=== PATIENT | female | born 1955 | race Caucasian/White ===

== ENCOUNTER 2024-09-05 12:02 | Inpatient (IN) | payer OTHER, MEDICAID ==
[~2024-09-05] VITALS: Ht 175.3 cm; Wt 113.4 kg
[~2024-09-05 12:02] MED LIST: ACET-66 PO; ALBU18HF12 IH; ASPI-1450 PO; ATOR40TA28 PO; AZAT50TA22 PO; CALC200T31 CHEW; CHOL200059 PO; CYCL1DRO21 OU; FLUT16SP NASAL; GABA-1181 PO; GABA-1216 PO; LACT1CAP58 PO; LEVO25TA9 PO; LORA10TA7 PO; MAGN-169 PO; MAGN64TA7 PO; OLAN10TA74 PO; OLAN5TAB52 PO; OLAN5TAB94 PO; ONDA-104 PO; POLY17PO47 PO; POLY250020 PO; PRED-549 PO; RISP-31 PO; RISP0.5T80 PO; SENN-395 PO; SIME80TA82 PO; TACR1CAP12 PO; TRAZ-252 PO; TRAZ-257 PO
[2024-09-05] MEDS ORDERED: OLANZapine 5 MG RAPDIS TABLET PO SCH (21:00)
[2024-09-05] MEDS ORDERED: TraZODone HCL 100 MG TABLET PO SCH (21:00)
[2024-09-06] MEDS ORDERED: DEXTROSE 50%-WATER 25 GM/50 ML SYRINGE IVP PRN (13:30)
[2024-09-06] MEDS ORDERED: GABAPENTIN 300 MG CAPSULE PO SCH (17:00)
[2024-09-06] MEDS: CycloSPORINE 0.05% 0.4 ML OPHTHALMIC EMULSION OU SCH (17:00)
[2024-09-06] MEDS: TACROLIMUS 1 MG CAPSULE PO SCH (17:00)
[2024-09-06] MEDS: INSULIN LISPRO 100 UNITS/ML SQ PRN (18:37)
[2024-09-06 18:56] LABS: GLUCOMETER DEV NAME(LOC) 3E.I 2; GLUCOSE,POINT OF CARE 417 MG/DL (70-110)
[2024-09-06] MEDS: SENNOSIDES 8.6 MG TABLET PO SCH (21:00)
[2024-09-06] MEDS: ATORVASTATIN CALCIUM 40 MG TABLET PO SCH (21:00)
[2024-09-06] MEDS: INSULIN GLARGINE,HUM.REC.ANLOG 100 UNITS/ML SQ SCH (21:00)
[2024-09-06] MEDS: ETHYL ALCOHOL 62% ANTISEPTIC NASAL SANITIZER 0.6 ML AMPUL NASAL SCH (21:00)
[2024-09-06] MEDS: CHLORHEXIDINE GLUCONATE 2% TOWELETTE [2'S/6'S] TP SCH (22:00)
[2024-09-06 22:50] VITALS: RESP 18
[2024-09-06] MEDS: RisperiDONE 2 MG TABLET PO PRN (23:25)
[2024-09-07] MEDS: TraZODone HCL 100 MG TABLET PO SCH
[2024-09-07] MEDS: OLANZapine 5 MG RAPDIS TABLET PO SCH (00:54)
[2024-09-07] MEDS: LEVOTHYROXINE SODIUM 25 MCG TABLET PO SCH (07:00)
[2024-09-07] MEDS ORDERED: MULTIVITAMINS WITH MINERALS, THERAPEUTIC TABLET PO SCH (09:00)
[2024-09-07] MEDS: PredniSONE 5 MG TABLET PO SCH (09:20)
[2024-09-07] MEDS: MAGNESIUM OXIDE 400 MG TABLET PO SCH (09:20)
[2024-09-07] MEDS: ASPIRIN 81 MG CHEWABLE TABLET PO SCH (09:20)
[2024-09-07 12:30] LABS: GLUCOMETER DEV NAME(LOC) 3E.I 2; GLUCOSE,POINT OF CARE 387 MG/DL (70-110)
[2024-09-07 21:07] VITALS: RESP 20; TEMP 98.5; O2SAT 97
[2024-09-08 09:06] LABS: GLUCOMETER DEV NAME(LOC) 3E.I 2; GLUCOSE,POINT OF CARE 258 MG/DL (70-110)
[2024-09-08 11:50] LABS: GLUCOMETER DEV NAME(LOC) 3E.I 2; GLUCOSE,POINT OF CARE 360 MG/DL (70-110)
[2024-09-08 12:31] VITALS: RESP 18
[2024-09-08 17:10] LABS: GLUCOMETER DEV NAME(LOC) 3E.I 2; GLUCOSE,POINT OF CARE 313 MG/DL (70-110)
[2024-09-08 21:58] VITALS: RESP 18
[2024-09-09 08:58] LABS: CALCIUM, TOTAL 8.3 mg/dL (8.8-10.5); CREATININE 1.32 mg/dL (0.60-1.30); MAGNESIUM 1.9 mg/dL (1.80-2.40); PHOSPHORUS 3.4 mg/dL (2.5-4.9); POTASSIUM 3.7 mmol/L (3.5-5.1)
[2024-09-09 08:59] LABS: CHOL/HDL RATIO 2.5 (3.9-5.7)
[2024-09-09] MEDS: DOCUSATE SODIUM 100 MG CAPSULE PO PRN (09:24)
[2024-09-09 09:56] LABS: GLUCOMETER DEV NAME(LOC) 3E.I 2; GLUCOSE,POINT OF CARE 227 MG/DL (70-110)
[2024-09-09 10:02] VITALS: RESP 18
[2024-09-09 11:46] LABS: GLUCOMETER DEV NAME(LOC) 3E.I 2; GLUCOSE,POINT OF CARE 278 MG/DL (70-110)
[2024-09-09 17:45] LABS: GLUCOMETER DEV NAME(LOC) 3E.I 2; GLUCOSE,POINT OF CARE 359 MG/DL (70-110)
[2024-09-09 21:05] LABS: GLUCOMETER DEV NAME(LOC) 3EX.2; GLUCOSE,POINT OF CARE 222 MG/DL (70-110)
[2024-09-09 21:31] VITALS: RESP 18; TEMP 97.5
[2024-09-10] MEDS: OLANZapine 10 MG RAPDIS TABLET PO SCH
[2024-09-10 11:23] VITALS: RESP 18
[2024-09-10 11:51] LABS: GLUCOMETER DEV NAME(LOC) 3EX.2; GLUCOSE,POINT OF CARE 272 MG/DL (70-110)
[2024-09-10 17:05] LABS: GLUCOMETER DEV NAME(LOC) 3EX.2; GLUCOSE,POINT OF CARE 273 MG/DL (70-110)
[2024-09-10] MEDS: INSULIN GLARGINE,HUM.REC.ANLOG 100 UNITS/ML SQ SCH (18:03)
[2024-09-10 22:19] VITALS: RESP 18
[2024-09-11 09:38] VITALS: RESP 18
[2024-09-11 12:55] LABS: GLUCOMETER DEV NAME(LOC) 3E.I 2; GLUCOSE,POINT OF CARE 355 MG/DL (70-110)
[2024-09-11 18:50] LABS: GLUCOMETER DEV NAME(LOC) 3E.I 2; GLUCOSE,POINT OF CARE 245 MG/DL (70-110)
[2024-09-11 20:24] VITALS: RESP 18
[2024-09-11 21:01] LABS: GLUCOMETER DEV NAME(LOC) 3E.I 2; GLUCOSE,POINT OF CARE 228 MG/DL (70-110)
[2024-09-12 08:37] VITALS: RESP 18
[2024-09-12 11:36] LABS: GLUCOMETER DEV NAME(LOC) 3E.I 2; GLUCOSE,POINT OF CARE 278 MG/DL (70-110)
[2024-09-12 17:46] LABS: GLUCOMETER DEV NAME(LOC) 3E.I 2; GLUCOSE,POINT OF CARE 378 MG/DL (70-110)
[2024-09-12] MEDS: TACROLIMUS 0.5 MG CAPSULE PO SCH (17:50)
[2024-09-12 20:31] LABS: GLUCOMETER DEV NAME(LOC) 3E.I 2; GLUCOSE,POINT OF CARE 262 MG/DL (70-110)
[2024-09-12 20:44] VITALS: PULSE 68; RESP 16; TEMP 98; O2SAT 98
[2024-09-12] MEDS: ACETAMINOPHEN 325 MG TABLET PO PRN (20:44)
[2024-09-12 23:23] VITALS: RESP 18; TEMP 97.9
[2024-09-13 06:31] LABS: GLUCOMETER DEV NAME(LOC) 3E.I 2; GLUCOSE,POINT OF CARE 174 MG/DL (70-110)
[2024-09-13 12:11] LABS: GLUCOMETER DEV NAME(LOC) 3E.I 2; GLUCOSE,POINT OF CARE 314 MG/DL (70-110)
[2024-09-13 17:02] VITALS: PULSE 71; O2SAT 96
[2024-09-13 17:15] LABS: GLUCOMETER DEV NAME(LOC) 3E.I 2; GLUCOSE,POINT OF CARE 336 MG/DL (70-110)
[2024-09-13 20:21] LABS: GLUCOMETER DEV NAME(LOC) 3E.I 2; GLUCOSE,POINT OF CARE 327 MG/DL (70-110)
[2024-09-13 22:02] VITALS: TEMP 98.2; O2SAT 98
[2024-09-14 05:41] LABS: GLUCOMETER DEV NAME(LOC) 3E.I 2; GLUCOSE,POINT OF CARE 235 MG/DL (70-110)
[2024-09-14 09:00] VITALS: RESP 18
[2024-09-14 11:46] LABS: GLUCOMETER DEV NAME(LOC) 3E.I 2; GLUCOSE,POINT OF CARE 281 MG/DL (70-110)
[2024-09-14 18:36] LABS: GLUCOMETER DEV NAME(LOC) 3E.I 2; GLUCOSE,POINT OF CARE 316 MG/DL (70-110)
[2024-09-14 20:15] LABS: GLUCOMETER DEV NAME(LOC) 3E.I 2; GLUCOSE,POINT OF CARE 329 MG/DL (70-110)
[2024-09-14 20:21] VITALS: RESP 20
[2024-09-15 06:00] LABS: GLUCOMETER DEV NAME(LOC) 3E.I 2; GLUCOSE,POINT OF CARE 180 MG/DL (70-110)
[2024-09-15 12:15] LABS: GLUCOMETER DEV NAME(LOC) 3E.I 2; GLUCOSE,POINT OF CARE 237 MG/DL (70-110)
[2024-09-15 12:38] VITALS: BP 145/72; PULSE 75
[2024-09-15 17:56] LABS: GLUCOMETER DEV NAME(LOC) 3E.I 2; GLUCOSE,POINT OF CARE 302 MG/DL (70-110)
[2024-09-15 21:06] LABS: GLUCOMETER DEV NAME(LOC) 3E.I 2; GLUCOSE,POINT OF CARE 239 MG/DL (70-110)
[2024-09-16 06:06] LABS: GLUCOMETER DEV NAME(LOC) 3E.I 2; GLUCOSE,POINT OF CARE 118 MG/DL (70-110)
[2024-09-16 09:29] LABS: BASOPHILS % (AUTO) 0.3 % (0.0-2.0); HEMATOCRIT 31.9 % (36-46); HEMOGLOBIN 10.6 g/dL (12.0-16.0); LYMPHOCYTES # (AUTO) 2.7 K/uL (1.0-4.8); LYMPHOCYTES % (AUTO) 34.6 % (22.0-44.0); MEAN CORPUSCULAR HEMOGLOBIN 30.3 pg (26.0-34.0); MEAN CORPUSCULAR HGB CONC 33.4 G/dL (31.0-37.0); MEAN CORPUSCULAR VOLUME 91 fL (80-100); MONOCYTES # (AUTO) 0.7 K/uL (0.1-1.0); MONOCYTES % (AUTO) 9.5 % (2.0-9.0); NEUTROPHILS # (AUTO) 4.1 K/uL (1.8-7.7); NEUTROPHILS % (AUTO) 53.6 % (40.0-70.0); PLATELET COUNT (AUTO) 183 K/uL (150-450); RED BLOOD CELL COUNT(AUTO) 3.51 MIL/uL (4.00-5.20); RED CELL DISTRIBUTION WIDTH 15.1 % (11.5-14.5); WHITE BLOOD COUNT (AUTO) 7.7 K/uL (4.5-11.0)
[2024-09-16 09:48] LABS: CREATININE 1.51 mg/dL (0.60-1.30)
[2024-09-16 10:00] LABS: MAGNESIUM 1.9 mg/dL (1.80-2.40); PHOSPHORUS 3.7 mg/dL (2.5-4.9)
[2024-09-16 10:05] VITALS: RESP 18
[2024-09-16 11:36] LABS: GLUCOMETER DEV NAME(LOC) 3E.I 2; GLUCOSE,POINT OF CARE 229 MG/DL (70-110)
[2024-09-16 17:10] LABS: GLUCOMETER DEV NAME(LOC) 3E.I 2; GLUCOSE,POINT OF CARE 303 MG/DL (70-110)
[2024-09-16 20:16] LABS: GLUCOMETER DEV NAME(LOC) 3E.I 2; GLUCOSE,POINT OF CARE 303 MG/DL (70-110)
[2024-09-16 21:38] VITALS: RESP 18
[2024-09-17] MEDS: ALBUTEROL SULFATE HFA 90 MCG/PUFF 8 GM INHALER IH PRN (00:12)
[2024-09-17 05:51] LABS: GLUCOMETER DEV NAME(LOC) 3E.I 2; GLUCOSE,POINT OF CARE 209 MG/DL (70-110)
[2024-09-17 08:26] VITALS: RESP 18
[2024-09-17 08:56] LABS: GLUCOMETER DEV NAME(LOC) 3E.I 2; GLUCOSE,POINT OF CARE 122 MG/DL (70-110)
[2024-09-17 11:55] LABS: CALCIUM, TOTAL 7.9 mg/dL (8.8-10.5); CREATININE 1.56 mg/dL (0.60-1.30); POTASSIUM 3.8 mmol/L (3.5-5.1)
[2024-09-17 12:15] LABS: GLUCOMETER DEV NAME(LOC) 3E.I 2; GLUCOSE,POINT OF CARE 245 MG/DL (70-110)
[2024-09-17] MEDS: OLANZapine 2.5 MG TABLET PO SCH (13:31)
[2024-09-17 16:18] LABS: APPEARANCE,URINE TURBID (CLEAR); BILIRUBIN,URINE NEGATIVE (NEGATIVE); COLOR,URINE YELLOW (YELLOW); GLUCOSE, URINE (UA) 150-200 mg/dL (NEGATIVE); KETONES,URINE NEGATIVE (NEGATIVE); LEUKOCYTE ESTERASE ,URINE LARGE (NEGATIVE); NITRATE,URINE NEGATIVE (NEGATIVE); OCCULT BLOOD,URINE SMALL (NEGATIVE); PH,URINE 6.5 (5.0-8.0); PROTEIN,URINE 30-70 mg/dL (NEGATIVE); UROBILINOGEN,URINE <=1.0 mg/dL (<=1.0)
[2024-09-17 16:49] LABS: WBC,URINE Full Field /HPF (0-5)
[2024-09-17 16:50] LABS: BACTERIA,URINE Many /HPF (None Seen); SQUAMOUS EPITHELIAL CELL,UR Few /LPF (None Seen)
[2024-09-17 17:10] LABS: GLUCOMETER DEV NAME(LOC) 3E.I 2; GLUCOSE,POINT OF CARE 321 MG/DL (70-110)
[2024-09-17] MEDS: CIPROFLOXACIN HCL 500 MG TABLET PO SCH (18:13)
[2024-09-17 22:01] LABS: GLUCOMETER DEV NAME(LOC) 3E.I 2; GLUCOSE,POINT OF CARE 329 MG/DL (70-110)
[2024-09-17 22:41] VITALS: PULSE 64; RESP 18; TEMP 97.8; O2SAT 98
[2024-09-18 07:11] LABS: GLUCOMETER DEV NAME(LOC) 3E.I 2; GLUCOSE,POINT OF CARE 153 MG/DL (70-110)
[2024-09-18 08:45] VITALS: RESP 18
[2024-09-18 11:41] LABS: GLUCOMETER DEV NAME(LOC) 3E.I 2; GLUCOSE,POINT OF CARE 215 MG/DL (70-110)
[2024-09-18] MEDS: TACROLIMUS 1 MG CAPSULE PO SCH (16:36)
[2024-09-18 17:16] LABS: GLUCOMETER DEV NAME(LOC) 3E.I 2; GLUCOSE,POINT OF CARE 285 MG/DL (70-110)
[2024-09-18 20:25] LABS: GLUCOMETER DEV NAME(LOC) 3E.I 2; GLUCOSE,POINT OF CARE 298 MG/DL (70-110)
[2024-09-18] MEDS ORDERED: TraZODone HCL 100 MG TABLET PO SCH (21:00)
[2024-09-18 22:05] VITALS: RESP 18
[2024-09-18] MEDS: OLANZapine 5 MG RAPDIS TABLET PO SCH ×2 (23:15)
[2024-09-19] MEDS: TraZODone HCL 100 MG TABLET PO SCH (00:22)
[2024-09-19 08:45] VITALS: RESP 18
[2024-09-19] MEDS ORDERED: OLANZapine 2.5 MG TABLET PO SCH ×2 (09:00)
[2024-09-19 10:06] LABS: GLUCOMETER DEV NAME(LOC) 3E.I 2; GLUCOSE,POINT OF CARE 193 MG/DL (70-110)
[2024-09-19 12:16] LABS: GLUCOMETER DEV NAME(LOC) 3E.I 2; GLUCOSE,POINT OF CARE 200 MG/DL (70-110)
[2024-09-19 16:30] LABS: GLUCOMETER DEV NAME(LOC) 3E.I 2; GLUCOSE,POINT OF CARE 253 MG/DL (70-110)
[2024-09-19 21:11] LABS: GLUCOMETER DEV NAME(LOC) 3E.I 2; GLUCOSE,POINT OF CARE 224 MG/DL (70-110)
[2024-09-19 22:36] VITALS: BP 130/72; PULSE 65; RESP 17; TEMP 97.9; O2SAT 97
[2024-09-19] MEDS: OLANZapine 7.5 MG TABLET PO SCH (23:41)
[2024-09-20] MEDS ORDERED: OLANZapine 2.5 MG TABLET PO SCH
[2024-09-20 06:01] LABS: GLUCOMETER DEV NAME(LOC) 3E.I 2; GLUCOSE,POINT OF CARE 162 MG/DL (70-110)
[2024-09-20] MEDS: DIVALPROEX SODIUM 500 MG ER TABLET PO SCH (09:19)
[2024-09-20 12:01] LABS: GLUCOMETER DEV NAME(LOC) 3E.I 2; GLUCOSE,POINT OF CARE 196 MG/DL (70-110)
[2024-09-20] MEDS: RisperiDONE 0.5 MG TABLET PO SCH (12:21)
[2024-09-20 17:21] LABS: GLUCOMETER DEV NAME(LOC) 3E.I 2; GLUCOSE,POINT OF CARE 294 MG/DL (70-110)
[2024-09-20 20:25] LABS: GLUCOMETER DEV NAME(LOC) 3EX.2; GLUCOSE,POINT OF CARE 334 MG/DL (70-110)
[2024-09-20 20:41] VITALS: RESP 16
[2024-09-21 06:25] LABS: GLUCOMETER DEV NAME(LOC) 3E.I 2; GLUCOSE,POINT OF CARE 138 MG/DL (70-110)
[2024-09-21 08:14] VITALS: BP 124/65; PULSE 74; RESP 17; TEMP 98.2; O2SAT 96
[2024-09-21 11:55] LABS: GLUCOMETER DEV NAME(LOC) 3E.I 2; GLUCOSE,POINT OF CARE 201 MG/DL (70-110)
[2024-09-21 17:00] LABS: GLUCOMETER DEV NAME(LOC) 3E.I 2; GLUCOSE,POINT OF CARE 224 MG/DL (70-110)
[2024-09-21 21:05] LABS: GLUCOMETER DEV NAME(LOC) 3E.I 2; GLUCOSE,POINT OF CARE 312 MG/DL (70-110)
[2024-09-22 00:52] VITALS: RESP 18
[2024-09-22 06:31] LABS: GLUCOMETER DEV NAME(LOC) 3E.I 2; GLUCOSE,POINT OF CARE 174 MG/DL (70-110)
[2024-09-22 12:15] LABS: GLUCOMETER DEV NAME(LOC) 3E.I 2; GLUCOSE,POINT OF CARE 167 MG/DL (70-110)
[2024-09-22 18:06] LABS: GLUCOMETER DEV NAME(LOC) 3E.I 2; GLUCOSE,POINT OF CARE 232 MG/DL (70-110)
[2024-09-22 20:41] LABS: GLUCOMETER DEV NAME(LOC) 3E.I 2; GLUCOSE,POINT OF CARE 150 MG/DL (70-110)
[2024-09-23 07:06] LABS: GLUCOMETER DEV NAME(LOC) 3E.I 2; GLUCOSE,POINT OF CARE 186 MG/DL (70-110)
[2024-09-23 07:29] LABS: CALCIUM, TOTAL 7.8 mg/dL (8.8-10.5); CREATININE 1.39 mg/dL (0.60-1.30); POTASSIUM 3.3 mmol/L (3.5-5.1)
[2024-09-23 07:33] LABS: MAGNESIUM 1.8 mg/dL (1.80-2.40); PHOSPHORUS 3.3 mg/dL (2.5-4.9)
[2024-09-23 10:37] VITALS: RESP 18
[2024-09-23 11:21] LABS: GLUCOMETER DEV NAME(LOC) 3E.I 2; GLUCOSE,POINT OF CARE 102 MG/DL (70-110)
[2024-09-23] MEDS: POTASSIUM CHLORIDE 10 MEQ ER TABLET PO ONE (11:47)
[2024-09-23 17:51] LABS: GLUCOMETER DEV NAME(LOC) 3E.I 2; GLUCOSE,POINT OF CARE 212 MG/DL (70-110)
[2024-09-23 20:16] LABS: GLUCOMETER DEV NAME(LOC) 3E.I 2; GLUCOSE,POINT OF CARE 232 MG/DL (70-110)
[2024-09-23 22:32] VITALS: RESP 18
[2024-09-24 06:11] LABS: GLUCOMETER DEV NAME(LOC) 3E.I 2; GLUCOSE,POINT OF CARE 255 MG/DL (70-110)
[2024-09-24 08:25] VITALS: RESP 17
[2024-09-24 11:16] LABS: GLUCOMETER DEV NAME(LOC) 3E.I 2; GLUCOSE,POINT OF CARE 157 MG/DL (70-110)
[2024-09-24] MEDS: RisperiDONE 0.5 MG TABLET PO SCH (11:58)
[2024-09-24 17:41] LABS: GLUCOMETER DEV NAME(LOC) 3E.I 2; GLUCOSE,POINT OF CARE 251 MG/DL (70-110)
[2024-09-24] MEDS ORDERED: TraZODone HCL 100 MG TABLET PO SCH (21:00)
[2024-09-24 21:35] LABS: GLUCOMETER DEV NAME(LOC) 3E.I 2; GLUCOSE,POINT OF CARE 335 MG/DL (70-110)
[2024-09-24 23:00] VITALS: BP 137/69; PULSE 83; RESP 18; TEMP 98.4; O2SAT 96
[2024-09-24] MEDS: TraZODone HCL 100 MG TABLET PO SCH (23:05)
[2024-09-24] MEDS: ESZOPICLONE 3 MG TABLET PO SCH (23:05)
[2024-09-24] MEDS: OLANZapine 7.5 MG TABLET PO SCH (23:06)
[2024-09-25 00:38] VITALS: BP 137/69; PULSE 83; RESP 18; TEMP 98.4; O2SAT 96
[2024-09-25 06:25] LABS: GLUCOMETER DEV NAME(LOC) 3E.I 2; GLUCOSE,POINT OF CARE 183 MG/DL (70-110)
[2024-09-25 12:31] LABS: GLUCOMETER DEV NAME(LOC) 3E.I 2; GLUCOSE,POINT OF CARE 215 MG/DL (70-110)
[2024-09-25 15:37] VITALS: RESP 18
[2024-09-25 17:36] LABS: GLUCOMETER DEV NAME(LOC) 3E.I 2; GLUCOSE,POINT OF CARE 284 MG/DL (70-110)
[2024-09-25 20:15] LABS: GLUCOMETER DEV NAME(LOC) 3E.I 2; GLUCOSE,POINT OF CARE 279 MG/DL (70-110)
[2024-09-26 00:18] VITALS: BP 130/70; PULSE 86; RESP 18; TEMP 98.1; O2SAT 96
[2024-09-26 05:51] LABS: GLUCOMETER DEV NAME(LOC) 3E.I 2; GLUCOSE,POINT OF CARE 194 MG/DL (70-110)
[2024-09-26 08:25] VITALS: RESP 18
[2024-09-26 12:01] LABS: GLUCOMETER DEV NAME(LOC) 3E.I 2; GLUCOSE,POINT OF CARE 289 MG/DL (70-110)
[2024-09-26 17:11] LABS: GLUCOMETER DEV NAME(LOC) 3E.I 2; GLUCOSE,POINT OF CARE 260 MG/DL (70-110)
[2024-09-26 20:15] LABS: GLUCOMETER DEV NAME(LOC) 3E.I 2; GLUCOSE,POINT OF CARE 252 MG/DL (70-110)
[2024-09-26 21:00] VITALS: BP 128/71; PULSE 82; RESP 19; TEMP 97.8; O2SAT 100
[2024-09-27 06:21] LABS: GLUCOMETER DEV NAME(LOC) 3E.I 2; GLUCOSE,POINT OF CARE 152 MG/DL (70-110)
[2024-09-27 08:45] VITALS: BP 134/73; PULSE 75; RESP 18; TEMP 98.4; O2SAT 98
[2024-09-27 12:00] LABS: GLUCOMETER DEV NAME(LOC) 3E.I 2; GLUCOSE,POINT OF CARE 136 MG/DL (70-110)
[2024-09-27 17:35] LABS: GLUCOMETER DEV NAME(LOC) 3E.I 2; GLUCOSE,POINT OF CARE 276 MG/DL (70-110)
[2024-09-27 20:21] VITALS: RESP 18
[2024-09-27 20:22] VITALS: RESP 17
[2024-09-28 06:11] LABS: GLUCOMETER DEV NAME(LOC) 3E.I 2; GLUCOSE,POINT OF CARE 244 MG/DL (70-110)
[2024-09-28 08:15] VITALS: RESP 17
[2024-09-28 11:50] LABS: GLUCOMETER DEV NAME(LOC) 3E.I 2; GLUCOSE,POINT OF CARE 206 MG/DL (70-110)
[2024-09-28 18:26] LABS: GLUCOMETER DEV NAME(LOC) 3E.I 2; GLUCOSE,POINT OF CARE 228 MG/DL (70-110)
[2024-09-28 20:27] LABS: GLUCOMETER DEV NAME(LOC) 3E.I 2; GLUCOSE,POINT OF CARE 272 MG/DL (70-110)
[2024-09-28 22:51] VITALS: BP 139/77; PULSE 72; RESP 18; TEMP 97.1; O2SAT 96
[2024-09-29 07:11] LABS: GLUCOMETER DEV NAME(LOC) 3E.I 2; GLUCOSE,POINT OF CARE 249 MG/DL (70-110)
[2024-09-29 11:46] LABS: GLUCOMETER DEV NAME(LOC) 3E.I 2; GLUCOSE,POINT OF CARE 214 MG/DL (70-110)
[2024-09-29 15:19] VITALS: RESP 18; O2SAT 97
[2024-09-29 17:31] LABS: GLUCOMETER DEV NAME(LOC) 3E.I 2; GLUCOSE,POINT OF CARE 300 MG/DL (70-110)
[2024-09-29 20:11] LABS: GLUCOMETER DEV NAME(LOC) 3E.I 2; GLUCOSE,POINT OF CARE 330 MG/DL (70-110)
[2024-09-29 23:02] VITALS: RESP 18
[2024-09-30 06:36] LABS: GLUCOMETER DEV NAME(LOC) 3E.I 2; GLUCOSE,POINT OF CARE 167 MG/DL (70-110)
[2024-09-30 08:45] VITALS: RESP 18
[2024-09-30] MEDS: OMEPRAZOLE 20 MG CAPSULE PO SCH (10:06)
[2024-09-30 11:55] LABS: GLUCOMETER DEV NAME(LOC) 3E.I 2; GLUCOSE,POINT OF CARE 197 MG/DL (70-110)
[2024-09-30 17:21] LABS: GLUCOMETER DEV NAME(LOC) 3E.I 2; GLUCOSE,POINT OF CARE 280 MG/DL (70-110)
[2024-09-30 20:35] LABS: GLUCOMETER DEV NAME(LOC) 3E.I 2; GLUCOSE,POINT OF CARE 357 MG/DL (70-110)
[2024-09-30 22:31] VITALS: BP 119/66; PULSE 70; RESP 18; TEMP 97.4; O2SAT 98
[2024-10-01 05:45] LABS: GLUCOMETER DEV NAME(LOC) 3E.I 2; GLUCOSE,POINT OF CARE 213 MG/DL (70-110)
[2024-10-01] MEDS: OLANZapine 2.5 MG TABLET PO SCH (08:52)
[2024-10-01] MEDS ORDERED: OLANZapine 2.5 MG TABLET PO SCH (09:00)
[2024-10-01 09:30] VITALS: BP 126/66; PULSE 71; RESP 18; TEMP 97.5; O2SAT 95
[2024-10-01 11:46] LABS: GLUCOMETER DEV NAME(LOC) 3E.I 2; GLUCOSE,POINT OF CARE 248 MG/DL (70-110)
[2024-10-01 16:46] LABS: GLUCOMETER DEV NAME(LOC) 3E.I 2; GLUCOSE,POINT OF CARE 307 MG/DL (70-110)
[2024-10-01] MEDS: RisperiDONE 0.5 MG TABLET PO SCH (17:37)
[2024-10-01 20:26] LABS: GLUCOMETER DEV NAME(LOC) 3E.I 2; GLUCOSE,POINT OF CARE 269 MG/DL (70-110)
[2024-10-01 23:52] VITALS: RESP 18; TEMP 97.7
[2024-10-02 06:40] LABS: GLUCOMETER DEV NAME(LOC) 3E.I 2; GLUCOSE,POINT OF CARE 119 MG/DL (70-110)
[2024-10-02] MEDS: RisperiDONE 1 MG TABLET PO SCH (08:28)
[2024-10-02 10:55] VITALS: BP 112/61; PULSE 65; RESP 20; TEMP 97.7; O2SAT 100
[2024-10-02 11:30] LABS: GLUCOMETER DEV NAME(LOC) 3E.I 2; GLUCOSE,POINT OF CARE 249 MG/DL (70-110)
[2024-10-02 16:36] LABS: GLUCOMETER DEV NAME(LOC) 3EX.2; GLUCOSE,POINT OF CARE 251 MG/DL (70-110)
[2024-10-02 20:11] LABS: GLUCOMETER DEV NAME(LOC) 3EX.2; GLUCOSE,POINT OF CARE 289 MG/DL (70-110)
[2024-10-02 22:21] VITALS: BP 125/68; PULSE 67; RESP 19; TEMP 97.5; O2SAT 99
[2024-10-03 06:21] LABS: GLUCOMETER DEV NAME(LOC) 3EX.2; GLUCOSE,POINT OF CARE 222 MG/DL (70-110)
[2024-10-03] MEDS: DOCUSATE SODIUM 283 MG/5 ML MINI-ENEMA PR PRN (07:29)
[2024-10-03 10:36] LABS: CREATININE 1.47 mg/dL (0.60-1.30); POTASSIUM 3.6 mmol/L (3.5-5.1)
[2024-10-03 11:35] LABS: GLUCOMETER DEV NAME(LOC) 3EX.2; GLUCOSE,POINT OF CARE 275 MG/DL (70-110)
[2024-10-03 13:23] VITALS: BP 125/73; PULSE 83; RESP 19; TEMP 97.3; O2SAT 95
[2024-10-03 16:51] LABS: GLUCOMETER DEV NAME(LOC) 3EX.2; GLUCOSE,POINT OF CARE 337 MG/DL (70-110)
[2024-10-03 20:25] LABS: GLUCOMETER DEV NAME(LOC) 3EX.2; GLUCOSE,POINT OF CARE 232 MG/DL (70-110)
[2024-10-03] MEDS: SENNOSIDES 8.6 MG TABLET PO SCH (21:00)
[2024-10-03 21:58] VITALS: BP 125/60; PULSE 72; RESP 18; TEMP 98.2; O2SAT 97
[2024-10-04 06:30] LABS: GLUCOMETER DEV NAME(LOC) 3EX.2; GLUCOSE,POINT OF CARE 107 MG/DL (70-110)
[2024-10-04 08:35] VITALS: RESP 17
[2024-10-04] MEDS ORDERED: RISP-31 PO (10:15)
[2024-10-04] MEDS ORDERED: OLAN2.5T78 PO (10:15)
[2024-10-04] MEDS ORDERED: ESZO3TAB53 PO (10:15)
[2024-10-04] MEDS ORDERED: OLAN7.5T22 PO (10:15)
[2024-10-04] MEDS ORDERED: TRAZ-257 PO (10:15)
[2024-10-04 11:50] LABS: GLUCOMETER DEV NAME(LOC) 3EX.2; GLUCOSE,POINT OF CARE 174 MG/DL (70-110)
[2024-10-04] MEDS ORDERED: CHLO2TOW TP (13:41)
[2024-10-04] MEDS ORDERED: ETHY1MED2 NASAL (13:42)
[2024-10-04] MEDS ORDERED: MAGN400T57 PO (13:43)
[2024-10-04] MEDS ORDERED: OMEP-148 PO (13:44)
[2024-10-04] MEDS ORDERED: SENN-376 PO (13:45)
[2024-10-04] MEDS ORDERED: INSLAN SQ (13:45)
[2024-10-04 16:55] LABS: GLUCOMETER DEV NAME(LOC) 3EX.2; GLUCOSE,POINT OF CARE 273 MG/DL (70-110)
[2024-10-04] MEDS: DOCUSATE SODIUM 100 MG CAPSULE PO PRN (17:47)
[2024-10-04 20:00] VITALS: RESP 18
[2024-10-04 20:20] LABS: GLUCOMETER DEV NAME(LOC) 3EX.2; GLUCOSE,POINT OF CARE 274 MG/DL (70-110)
[2024-10-05 05:41] LABS: GLUCOMETER DEV NAME(LOC) 3EX.2; GLUCOSE,POINT OF CARE 244 MG/DL (70-110)
[2024-10-05 08:30] LABS: CALCIUM, TOTAL 7.9 mg/dL (8.8-10.5); CREATININE 1.33 mg/dL (0.60-1.30); POTASSIUM 3.4 mmol/L (3.5-5.1)
[2024-10-05 09:38] VITALS: BP 128/65; PULSE 71; RESP 18; TEMP 97.5; O2SAT 97
[2024-10-05 11:46] LABS: GLUCOMETER DEV NAME(LOC) 3EX.2; GLUCOSE,POINT OF CARE 141 MG/DL (70-110)
[2024-10-05] MEDS: POTASSIUM CHLORIDE 10 MEQ ER TABLET PO ONE (12:00)
== END 2024-10-05 16:39 | disposition home or self-care (01) | DRG 885 ==
LOC: 3EX 09-06 09:12 → 3EI 09-11 00:15
PROVIDERS: ADMIT Psychiatry & Neurology Psychiatry; ATTEND Psychiatry & Neurology Psychiatry
PROC: GZHZZZZ Group Psychotherapy (ICD-10-PCS; principal; 2024-09-07)
PROC: GZ58ZZZ Individual Psychotherapy, Cognitive-Behavioral (ICD-10-PCS; 2024-09-07)
PROC: GZ56ZZZ Individual Psychotherapy, Supportive (ICD-10-PCS; 2024-09-07)
DX: F31.64 Bipolar disorder, current episode mixed, severe, with psychotic features (principal); E11.65 Type 2 diabetes mellitus with hyperglycemia; R53.2 Functional quadriplegia; F01.54 Vascular dementia, unspecified severity, with anxiety; E03.9 Hypothyroidism, unspecified; E78.5 Hyperlipidemia, unspecified; E11.22 Type 2 diabetes mellitus with diabetic chronic kidney disease; E87.6 Hypokalemia; E11.40 Type 2 diabetes mellitus with diabetic neuropathy, unspecified; E66.9 Obesity, unspecified; E83.42 Hypomagnesemia; I25.10 Atherosclerotic heart disease of native coronary artery without angina pectoris; T43.8X6A Underdosing of other psychotropic drugs, initial encounter; E11.319 Type 2 diabetes mellitus with unspecified diabetic retinopathy without macular edema; T45.1X6A Underdosing of antineoplastic and immunosuppressive drugs, initial encounter; Y92.89 Other specified places as the place of occurrence of the external cause; I69.322 Dysarthria following cerebral infarction; Z91.51 Personal history of suicidal behavior; Z68.36 Body mass index [BMI] 36.0-36.9, adult; Z55.9 Problems related to education and literacy, unspecified; Z59.9 Problem related to housing and economic circumstances, unspecified; Z63.9 Problem related to primary support group, unspecified; Z65.3 Problems related to other legal circumstances; Z79.4 Long term (current) use of insulin; Z79.52 Long term (current) use of systemic steroids; Z88.0 Allergy status to penicillin; Z88.1 Allergy status to other antibiotic agents; Z91.148 Patient's other noncompliance with medication regimen for other reason; Z88.8 Allergy status to other drugs, medicaments and biological substances
CPT/HCPCS: 71045; 80048; 80061; 80197; 81001; 82962; 83036; 83735; 84100; 84132; 85025; 87081; 87086; 97110; 97162; 97167; 97530; 97535; G0378; J1815; J3535; J7507; 36415-L1; 36415-TC